=== PATIENT | male | born 1945 | race Caucasian/White ===

== ENCOUNTER 2022-11-14 07:23 | Outpatient (CLI) | payer MEDICARE | END 2022-11-14 07:24 | disposition home or self-care (01) | LOC: CSHCT 07:23 | PROVIDERS: ATTEND Internal Medicine Cardiovascular Disease | DX: Z01.810 Encounter for preprocedural cardiovascular examination (principal); I48.11 Longstanding persistent atrial fibrillation; K92.2 Gastrointestinal hemorrhage, unspecified | CPT/HCPCS: 71275; 82565 ==